=== PATIENT | female | born 1935 | race Caucasian/White ===

== ENCOUNTER 2023-07-19 14:02 | Outpatient (AMB) | payer MEDICARE, SELFPAY ==
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
[2023-07-19 14:13] VITALS: BP 132/68; PULSE 104; RESP 15; BMI 18.3
== END 2023-07-19 15:16 | disposition home or self-care (01) ==
PROVIDERS: Visit Provider Psychiatry & Neurology Neurology
DX: G30.9 Alzheimer's disease, unspecified (principal); F02.80 Dementia in other diseases classified elsewhere, unspecified severity, without behavioral disturbance, psychotic disturbance, mood disturbance, and anxiety
CPT/HCPCS: 99204

== ENCOUNTER 2023-12-19 12:31 | Outpatient (AMB) | payer MEDICARE, SELFPAY ==
--- NOTE | 2023-12-19 12:32 | A.OFFVIS_ITS ---
Intake Intake Visit Reasons: 4M Severe dementia [phone] Intake Note: Pt presents or a 4 month follow up for dementia via telehealth visit. Her caregiver Joel will be her historian. Senior Interactive Producer Required: No Allergies No Known Allergies Allergy (Verified 12/19/23 12:32) Medication List - Last Reconciled 12/19/23 by Kristal Valle MD acetaminophen ER 650 mg PO Q8H citalopram 20 mg PO DAILY memantine (Namenda) 1 tab qd for 4 weeks then 1 tab bid orally; quetiapine 50 mg PO TID sennosides (senna) 8.6 mg PO BID trazodone 100 mg PO DAILY HPI HPI Comments History of Present Illness Details 88y/o female calls for follow up of dem entia and behavior issues. she is memantine 10mg bid she is quetiapine 25 mg tid Her behavior issues have improved with meds. bit still has mood swings . she wakes up confused, has vivid dreams, hallucinations. Her hallucinations are less. During daytime she is always looking for her car keys and pocket book, talks about going back to her parents house etc. Her appetite is high and likes snacks. [facility] Medical History Depression Arthritis Alzheimer's dementia Surgical History H/O total hysterectomy Hx of tonsillectomy H/O mastectomy H/O colonoscopy History of appendectomy History of hip replacement Family History Family/Other No problems noted. Social History Household Members: Friend(s) Household Members Other:: she is living with friend Shannon and her family- , son, [place] Caregiver staying overnight: Yes Housing: House Alcohol intake: never Patient Tobacco Use Status: Never used Tobacco Assessment & Plan Assessment & Plan (1) Alzheimer's dementia: Comment: advanced with psychosis , paranoid thoughts Code(s): G30.9 - Alzheimer's disease, unspecified; F02.80 - Dementia in other diseases classified elsewhere, unspecified severity, without behavioral disturbance, psychotic disturbance, mood disturbance, and anxiety Plan Suggested to plan nursing home care Continue quetipine 50mg tid Continue memantine 10mg bid Increase trazadone 100mg qhs Medications: Changed From trazodone 50 mg PO DAILY To trazodone 100 mg PO DAILY 30 tabs 6RF Telehealth Telehealth Location of provider rendering services: practice address Location of patient: address on file Patient Identification confirmed using: Name, : Yes Telehealth method: voice only Patient verbally consented to treatment: Yes Patient verbally consented to billing insurance company: Yes Patient informed of any privacy concerns related to visit: Yes Minutes spent on Phone/Video with Pt.: 15 Coding Level of Care Code Tele Est Pt Level 3 (29235) Diagnoses Alzheimer's dementia G30.9; F02.80 Time Spent (min) 15
== END 2023-12-19 13:59 | disposition home or self-care (01) ==
LOC: HO.HSMS 12:31
PROVIDERS: PCP Family Medicine; Visit Provider Psychiatry & Neurology Neurology
DX: G30.9 Alzheimer's disease, unspecified (principal); F02.C18 Dementia in other diseases classified elsewhere, severe, with other behavioral disturbance
CPT/HCPCS: 99442

== ENCOUNTER 2024-06-20 11:16 | Outpatient (AMB) | payer MEDICARE, SELFPAY ==
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
[2024-06-20 11:30] VITALS: BP 116/68; PULSE 93; RESP 16; O2SAT 97
== END 2024-06-20 11:49 | disposition home or self-care (01) ==
PROVIDERS: PCP Family Medicine; Visit Provider Psychiatry & Neurology Neurology
DX: G30.9 Alzheimer's disease, unspecified (principal); F02.80 Dementia in other diseases classified elsewhere, unspecified severity, without behavioral disturbance, psychotic disturbance, mood disturbance, and anxiety
CPT/HCPCS: 99214

== ENCOUNTER → 2024-06-20 11:16 | Outpatient (BNVA) | payer MEDICARE, SELFPAY | PROVIDERS: PCP Family Medicine; Visit Provider Psychiatry & Neurology Neurology | DX: G30.9 Alzheimer's disease, unspecified (principal); F02.80 Dementia in other diseases classified elsewhere, unspecified severity, without behavioral disturbance, psychotic disturbance, mood disturbance, and anxiety; Z79.899 Other long term (current) drug therapy | CPT/HCPCS: 99212 ==

== ENCOUNTER 2024-10-18 09:14 | Outpatient (AMB) | payer MEDICARE, SELFPAY ==
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
== END 2024-10-18 14:57 | disposition home or self-care (01) ==
LOC: HO.HSMS 09:14
PROVIDERS: PCP Family Medicine; Visit Provider Psychiatry & Neurology Neurology
DX: G30.1 Alzheimer's disease with late onset (principal); F02.C0 Dementia in other diseases classified elsewhere, severe, without behavioral disturbance, psychotic disturbance, mood disturbance, and anxiety
CPT/HCPCS: 99213